=== PATIENT | female | born 1990 | race Caucasian/White ===

== ENCOUNTER 2017-05-24 14:35 | Emergency (ER) | payer OTHER, SELFPAY ==
--- NOTE | 2017-05-24 15:55 | ER ---
Nurse's Notes [facility] Name: Rachel Cunha Age: 27 yrs Sex: Female : 1990 Arrival Date: 05/24/2017 Time: 14:37 Bed 11 Private MD: Diagnosis: Acute pharyngitis Presentation: 05/24 14:47 Presenting complaint: Patient states: I am 6 weeks and I have had a sore la1 throat since this morning. Transition of care: patient was not received from another setting of care. Onset of symptoms was May 24, 2017. Care prior to arrival: None. 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 - Social history:: Smoking status: Patient uses tobacco products, smokes one-half pack cigarettes per day. Screenin:06 Abuse screen: Denies threats or abuse. Denies injuries from another. Nutritional iw screening: No deficits noted. Tuberculosis screening: No symptoms or risk factors identified. Fall Risk None identified. Assessment: 15:06 General: Appears in no apparent distress. Behavior is calm, cooperative. Pain: iw Complains of pain in throat. Respiratory: Airway is patent Respiratory effort is even, unlabored, Breath sounds are clear bilaterally. EENT: Throat is reddened has enlarged tonsils on right bilaterally. Vital Signs: 14:48 BP 115 / 80; Pulse 81; Resp 16; Temp 98.1; Pulse Ox 100% on R/A; Weight 72.57 kg; la1 Height 5 ft. 4 in. (162.56 cm); 14:48 Body Mass Index 27.46 (72.57 kg, 162.56 cm) la1 ED Course: 14:37 Patient arrived in ED. tw3 14:41 Susanne Tapia FNP-C is PHCP. kb 14:41 Harshal Sims MD is Attending Physician. kb 14:47 Triage completed. la1 14:48 Arm band placed on right wrist. la1 14:56 Misty Shahid RN is Primary Nurse. iw 15:06 No provider procedures requiring assistance completed. Strep swab sent to lab. iw 15:58 Patient did not have IV access during this emergency room visit. iw 15:59 Patient has correct armband on for positive identification. iw Administered Medications: No medications were administered Outcome: 15:55 Discharge ordered by . kb 15:58 Discharged to home ambulatory. iw 15:58 Condition: good 15:58 Discharge instructions given to patient, Instructed on discharge instructions, follow up and referral plans. Demonstrated understanding of instructions, follow-up care. 15:59 Patient left the ED. iw Signatures: Susanne Tapia, JAVA JSF DEVELOPER-C JAVA JSF DEVELOPER-Misty Marie, RN RN Osman Perrin RN RN la1 Angie Lozano tw3
--- NOTE | 2017-05-24 15:55 | EDPHYS ---
Physician Documentation [facility] Name: Rcahel Cunha Age: 27 yrs Sex: Female : 1990 Arrival Date: 05/24/2017 Time: 14:37 Bed 11 Private MD: ED Physician Harshal Sims HPI: 05/24 15:27 This 27 yrs old Female presents to ER via Ambulatory with complaints of Sore kb Throat. 15:27 The patient presents with sore throat. The patient describes throat pain as constant. kb Onset: The symptoms/episode began/occurred this morning. Severity of symptoms: At their worst the symptoms were moderate, in the emergency department the symptoms are unchanged. Modifying factors: The symptoms are alleviated by nothing, the symptoms are aggravated by swallowing, Patient's oral intake status: good. Associated signs and symptoms: Pertinent positives: Sore throat. The patient has not experienced similar symptoms in the past. The patient has not recently seen a physician. 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 - Social history:: Smoking status: Patient uses tobacco products, smokes one-half pack cigarettes per day. ROS: 15:27 Constitutional: Negative for fever, chills, and weight loss, Cardiovascular: Negative kb for chest pain, palpitations, and edema, Respiratory: Negative for shortness of breath, cough, wheezing, and pleuritic chest pain, Abdomen/GI: Negative for abdominal pain, nausea, vomiting, diarrhea, and constipation, MS/Extremity: Negative for injury and deformity, Skin: Negative for injury, rash, and discoloration, Neuro: Negative for headache, weakness, numbness, tingling, and seizure. 15:27 ENT: Positive for sore throat. Exam: 15:26 Constitutional: This is a well developed, well nourished patient who is awake, alert, kb and in no acute distress. Head/Face: Normocephalic, atraumatic. Chest/axilla: Normal chest wall appearance and motion. Nontender with no deformity. No lesions are appreciated. Cardiovascular: Regular rate and rhythm with a normal S1 and S2. No gallops, murmurs, or rubs. Normal PMI, no JVD. No pulse deficits. Respiratory: Lungs have equal breath sounds bilaterally, clear to auscultation and percussion. No rales, rhonchi or wheezes noted. No increased work of breathing, no retractions or nasal flaring. Abdomen/GI: Soft, non-tender, with normal bowel sounds. No distension or tympany. No guarding or rebound. No evidence of tenderness throughout. Skin: Warm, dry with normal turgor. Normal color with no rashes, no lesions, and no evidence of cellulitis. MS/ Extremity: Pulses equal, no cyanosis. Neurovascular intact. Full, normal range of motion. Neuro: Awake and alert, GCS 15, oriented to person, place, time, and situation. Cranial nerves II-XII grossly intact. Motor strength 5/5 in all extremities. Sensory grossly intact. Cerebellar exam normal. Normal gait. 15:26 ENT: Posterior pharynx: Airway: normal, no evidence of obstruction, Tonsils: are normal in appearance, Uvula: normal, midline, swelling, is not appreciated, erythema, that is moderate. Vital Signs: 14:48 BP 115 / 80; Pulse 81; Resp 16; Temp 98.1; Pulse Ox 100% on R/A; Weight 72.57 kg; la1 Height 5 ft. 4 in. (162.56 cm); 14:48 Body Mass Index 27.46 (72.57 kg, 162.56 cm) la1 MDM: 14:51 Patient medically screened. kb 15:26 Data reviewed: vital signs, nurses notes. Data interpreted: Pulse oximetry: on room air kb is 100 %. Interpretation: normal. 15:54 Counseling: I had a detailed discussion with the patient and/or guardian regarding: the kb historical points, exam findings, and any diagnostic results supporting the discharge/admit diagnosis, lab results, the need for outpatient follow up, a family practitioner, to return to the emergency department if symptoms worsen or persist or if there are any questions or concerns that arise at home. 05/24 14:51 Order name: Strep; Complete Time: 15:48 kb 05/24 15:19 Order name: Urine Dipstick--Ancillary (enter results) ag 05/24 14:56 Order name: Urine Dipstick-Ancillary (obtain specimen); Complete Time: 15:10 kb 05/24 15:30 Order name: Throat Culture EDMS Administered Medications: No medications were administered Disposition: 16:44 Co-signature as Attending Physician, Harshal Sims MD I agree with the assessment and kdr plan of care. Disposition: 05/24/17 15:55 Discharged to Home. Impression: Acute pharyngitis. - Condition is Stable. - Discharge Instructions: Viral Infections, [id number], Sore Throat, [id number]. - Medication Reconciliation Form, Thank You Letter, Antibiotic Education, Prescription Opioid Use form. - Follow up: Emergency Department; When: As needed; Reason: Worsening of condition. Follow up: Private Physician; When: 2 - 3 days; Reason: Recheck today's complaints, Continuance of care, Re-evaluation by your physician. Signatures: Dispatcher [employer] EDMS Susanne Tapia, TOOL CRIB CLERK-C TOOL CRIB CLERK-Harshal Godwin MD MD kdr Misty Shahid, DEBBY GUARDADO iw Osman Marvin RN RN la1
[2017-05-24 16:12] VITALS: BP 115/80; TEMP 98.1; O2SAT 100
[2017-05-24 18:17] LABS: Urine Blood NEGATIVE (NEG); Urine Glucose NEGATIVE (NEG); Urine Protein NEGATIVE (NEG); Urine Specific Gravity >1.030 (1.005-1.030)
== END 2017-05-24 15:59 | disposition home or self-care (01) ==
LOC: ER 14:35
DX: J02.9 Acute pharyngitis, unspecified (principal); F17.210 Nicotine dependence, cigarettes, uncomplicated
CPT/HCPCS: 81003; 87070; 87081; 99283

== ENCOUNTER 2020-08-19 00:44 | Emergency (ER) | payer OTHER ==
--- OUTSIDE RECORDS SUMMARY | 2020-08-19 00:47 | XMS REPORT | Continuity of Care Document ---
:1990 Author Organization [facility] t Address [address] [place] [address] Care Team Providers Name Role Phone Mckenna Attending Clinician Sina Delcid MD Attending Clinician Kate Jennings Attending Clinician Problems This patient has no known problems. Allergies, Adverse Reactions, Alerts This patient has no known allergies or adverse reactions. Medications This patient has no known medications. Procedures This patient has no known procedures. Encounters Start End Encounter Admission Attending Care Care Encounter Source Date/Time Date/Time Type Type Clinicians Facility Department ID 2020-08-05 2020-08-05 Emergency Singer [facility] [id number] 13:59:00 19:11:00 Mane Raygoza [id number] [place] [id number] [place] [address] [phone] [id number] 2020-08-04 2020-08-05 Emergency Bhavin [facility] [id number] 22:32:00 00:33:00 Stef Raygoza [id number] [place] [id number] [place] [address] [id number] 2020-06-02 2020-06-02 Office Prateek [facility] [id number] 08:34:34 09:19:28 Visit 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
[2020-08-19] MEDS ORDERED: ONDANSETRON 4 MG (ODT) TAB ONE (01:25)
--- NOTE | 2020-08-19 03:52 | EDPHYS ---
Physician Documentation [facility] Name: Rachel Cunha Age: 30 yrs Sex: Female : 1990 Arrival Date: 08/19/2020 Time: 00:45 Bed 18 Private MD: ED Physician Johnny Adhikari HPI: 08/19 03:38 This 30 yrs old Female presents to ER via Ambulatory with complaints of mh7 Breathing Difficulty, problem with rib cage. 03:38 Trauma demographics: County: The [place] occurred in [place] Location of Injury: The mh7 injury occurred at home, Date: August 18, 2020. Mechanism of injury: Playing around. Associated injuries: The patient sustained injury to the chest, specifically the left lower anterior lateral chest, pain with breathing, pain with movement. Onset: The symptoms/episode began/occurred last night, initially injured 5 days ago playing sports. 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 - Social history:: Smoking status: Patient reports the use of cigarette tobacco products, smokes one-half pack cigarettes per day. ROS: 03:38 Constitutional: Negative for fever, chills, and weight loss, Eyes: Negative for injury, mh7 pain, redness, and discharge, ENT: Negative for injury, pain, and discharge, Neck: Negative for injury, pain, and swelling, Abdomen/GI: Negative for abdominal pain, nausea, vomiting, diarrhea, and constipation, Back: Negative for injury and pain, : Negative for injury, bleeding, discharge, and swelling, MS/Extremity: Negative for injury and deformity, Skin: Negative for injury, rash, and discoloration, Neuro: Negative for headache, weakness, numbness, tingling, and seizure, Psych: Negative for depression, anxiety, suicide ideation, homicidal ideation, and hallucinations, Allergy/Immunology: Negative for hives, rash, and allergies, Endocrine: Negative for neck swelling, polydipsia, polyuria, polyphagia, and marked weight changes, Hematologic/Lymphatic: Negative for swollen nodes, abnormal bleeding, and unusual bruising. Exam: 03:38 Constitutional: This is a well developed, well nourished patient who is awake, alert, mh7 and in no acute distress. Head/Face: Normocephalic, atraumatic. Eyes: Pupils equal round and reactive to light, extra-ocular motions intact. Lids and lashes normal. Conjunctiva and sclera are non-icteric and not injected. Cornea within normal limits. Periorbital areas with no swelling, redness, or edema. 03:38 Cardiovascular: Regular rate and rhythm with a normal S1 and S2. No gallops, murmurs, or rubs. Normal PMI, no JVD. No pulse deficits. Respiratory: Lungs have equal breath sounds bilaterally, clear to auscultation and percussion. No rales, rhonchi or wheezes noted. No increased work of breathing, no retractions or nasal flaring. Abdomen/GI: Soft, non-tender, with normal bowel sounds. No distension or tympany. No guarding or rebound. No evidence of tenderness throughout. Back: No spinal tenderness. No costovertebral tenderness. Full range of motion. Skin: Warm, dry with normal turgor. Normal color with no rashes, no lesions, and no evidence of cellulitis. MS/ Extremity: Pulses equal, no cyanosis. Neurovascular intact. Full, normal range of motion. Neuro: Awake and alert, GCS 15, oriented to person, place, time, and situation. Cranial nerves II-XII grossly intact. Motor strength 5/5 in all extremities. Sensory grossly intact. Cerebellar exam normal. Normal gait. Psych: Awake, alert, with orientation to person, place and time. Behavior, mood, and affect are within normal limits. 03:38 Chest/axilla: Inspection: normal, Palpation: tenderness, that is moderate, of the left lower anterior lateral chest, that totally reproduces the patient's complaints, Axilla: are normal, Lymph nodes: lymphadenopathy is not appreciated. Vital Signs: 00:59 BP 146 / 108; Pulse 97; Resp 16; Temp 98.1; Pulse Ox 98% on R/A; Weight 68.04 kg; em Height 5 ft. 4 in. (162.56 cm); Pain 8/10; 00:59 Body Mass Index 25.75 (68.04 kg, 162.56 cm) em MDM: 03:49 Differential diagnosis: rib fracture versus contusion, chest wall pain, pneumothorax. [facility] Data reviewed: vital signs, nurses notes, radiologic studies, plain films. Data interpreted: Pulse oximetry: on room air is 98 %. Interpretation: normal. Counseling: I had a detailed discussion with the patient and/or guardian regarding: the historical points, exam findings, and any diagnostic results supporting the discharge/admit diagnosis, the presence of at least one elevated blood pressure reading (>120/80) during this emergency department visit, radiology results, the need for outpatient follow up, to return to the emergency department if symptoms worsen or persist or if there are any questions or concerns that arise at home. 03:52 Patient medically screened. [facility] 08/19 01:06 Order name: Chest Single View XRAY em Administered Medications: 01:06 Drug: Ondansetron 4 mg Route: PO; em 03:22 Follow up: Response: No adverse reaction ea 03:58 Not Given (Patient Eloped): Tylenol 1000 mg PO once rr5 Disposition Summary: 08/19/20 03:52 Discharge Ordered Location: Home [facility] Problem: an ongoing problem [facility] Symptoms: have improved [facility] Condition: Stable [facility] Diagnosis - Chest Wall Pain [facility] Followup: [facility] - With: Private Physician - When: 1 - 2 days - Reason: Worsening of condition, Recheck today's complaints, Continuance of care, Re-evaluation by your physician Discharge Instructions: - Discharge Summary Sheet [facility] - Chest Wall Pain, [id number] [facility] Forms: - Medication Reconciliation Form [facility] - Thank You Letter [facility] - Antibiotic Education [facility] - Prescription Opioid Use [facility] Signatures: Dispatcher [employer] Jose Calloway, RN RN em Johnny Adhikari MD MD [facility] Tanya Tavarez RN, ea, Raymond RN rr5
--- NOTE | 2020-08-19 03:52 | ER ---
Nurse's Notes [facility] Name: Rachel Cunha Age: 30 yrs Sex: Female : 1990 Arrival Date: 08/19/2020 Time: 00:45 Bed 18 Private MD: Diagnosis: Chest Wall Pain Presentation: 08/19 00:59 Chief complaint: Patient states: was playing sports 5 days ago and got hit in the left em side of ribs, today was horse playing and heard a pop, also reports nausea, pain with inspiration. Coronavirus screen: Client denies travel out of the [place] in the last 14 days. Ebola Screen: Patient negative for fever greater than or equal to 101.5 degrees Fahrenheit, and additional compatible Ebola Virus Disease symptoms Patient denies exposure to infectious person. Patient denies travel to an Ebola-affected area in the 21 days before illness onset. No symptoms or risks identified at this time. Initial Sepsis Screen: Does the patient meet any 2 criteria? HR > 90 bpm. No. Patient's initial sepsis screen is negative. Does the patient have a suspected source of infection? No. Patient's initial sepsis screen is negative. Risk Assessment: Do you want to hurt yourself or someone else? Patient reports no desire to harm self or others. Onset of symptoms was August 19, 2020. 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 - Social history:: Smoking status: Patient reports the use of cigarette tobacco products, smokes one-half pack cigarettes per day. Screenin:56 Abuse screen: Denies threats or abuse. Nutritional screening: No deficits noted. ea Tuberculosis screening: No symptoms or risk factors identified. Fall Risk None identified. Assessment: 01:55 General: Appears uncomfortable, Behavior is appropriate for age. Neuro: Level of ea Consciousness is awake, alert, obeys commands, Oriented to person, place, time. Cardiovascular: Patient's skin is warm and dry. Respiratory: Airway is patent Respiratory effort is even, unlabored, Respiratory pattern is regular, symmetrical. Derm: Skin is pink, warm \T\ dry. Vital Signs: 00:59 BP 146 / 108; Pulse 97; Resp 16; Temp 98.1; Pulse Ox 98% on R/A; Weight 68.04 kg; em Height 5 ft. 4 in. (162.56 cm); Pain 8/10; 00:59 Body Mass Index 25.75 (68.04 kg, 162.56 cm) em ED Course: 00:45 Patient arrived in ED. es 01:02 Triage completed. em 01:02 Arm band placed on. em 01:47 Johnny Adhikari MD is Attending Physician. [facility] 01:55 Tanya Tavarez, RN is Primary Nurse. ea 01:56 Patient has correct armband on for positive identification. Bed in low position. Call ea light in reach. 02:11 Chest Single View XRAY In Process Unspecified. EDMS 03:18 No provider procedures requiring assistance completed. ea Administered Medications: 01:06 Drug: Ondansetron 4 mg Route: PO; em 03:22 Follow up: Response: No adverse reaction ea 03:58 Not Given (Patient Eloped): Tylenol 1000 mg PO once rr5 Outcome: 03:52 Discharge ordered by . [facility] 03:58 Eloped from patient exam room, prior to discharge instruction given rr5 03:59 Patient left the ED. rr5 Signatures: Dispatcher [employer] EDMaribell Waters Edgar, RN RN Tanya Tavarez RN RN ea Roque, Raymond, RN RN rr5 Johnny Adhikari MD MD [facility]
[2020-08-19 04:05] VITALS: BP 146/108; TEMP 98.1; O2SAT 98
[2020-08-19] MEDS ORDERED: ACETAMINOPHEN 500 MG TAB ONE (04:13)
--- NOTE | 2020-08-21 10:49 | RAD REPORT ---
EXAM DESCRIPTION: RAD - Chest Single View - 08/19/2020 2:11 am CLINICAL HISTORY: 30 years, Female, CHEST PAIN COMPARISON: None. FINDINGS: Single view of the chest was obtained portable. No prior films are available for compariso n. The cardiomediastinal silhouette demonstrate to be unremarkable. The heart is not enlarged. The thoracic aorta is unremarkable. There is no evidence for pneumothorax. Costophrenic angles are sharp. No areas of consolidation or masses are seen. The rest of the soft tissue and bony structures de monstrate to be unremarkable. IMPRESSION: NO ACUTE CARDIOPULMONARY DISEASE SEEN. Electronically signed by: Brady Reyes MD 08/19/2020 3:32 AM CDT Due to temporary technical issues with the PACS/Fluency reporting system, reports are being signed by the in house radiologist without review as a courtesy to ensure prompt reporting. The interpreting r adiologist is fully responsible for the content of the report.
== END 2020-08-19 03:59 | disposition home or self-care (01) ==
LOC: ER 00:44
DX: R07.89 Other chest pain (principal); F17.210 Nicotine dependence, cigarettes, uncomplicated
CPT/HCPCS: 71045; 99283

== ENCOUNTER 2020-09-02 10:38 | Emergency (ER) | payer OTHER ==
--- OUTSIDE RECORDS SUMMARY | 2020-09-02 10:40 | XMS REPORT | Continuity of Care Document ---
:1990 Author Organization [facility] t Address [address] [place] [address] Care Team Providers Name Role Phone Mckenna [...] Facility Department ID 2020-08-05 2020-08-05 Emergency Singer [facility] [id number] 13:59:00 19:11:00 Mane Raygoza [id number] [place] [id number] [place] [address] [id number] [id number] 2020-08-04 2020-08-05 Emergency Bhavin [facility] [id number] 22:32:00 00:33:00 Stef Raygoza [id number] [place] [id number] [place] [address] [id number] [id number] 2020-06-02 2020-06-02 Office Prateek [facility] [id number] 08:34:34 09:19:28 Visit Michelle Love GROCERY SUPERVISOR [id number] [facility] [id number] MATERNAL [phone] & CHILD [address] [place] [address] Results This patient has no known results.
[2020-09-02] MEDS ORDERED: dexAMETHasone 10 MG/ML VIAL ONE (13:46)
[2020-09-02] MEDS ORDERED: PEN G BENZ LA 1.2MU/2ML SYRINGE IM ONE (13:46)
--- NOTE | 2020-09-02 14:19 | ER ---
Nurse's Notes [facility] Name: Rachel Cunha Age: 30 yrs Sex: Female : 1990 Arrival Date: 09/02/2020 Time: 11:00 Bed 13 Private MD: Diagnosis: Acute pharyngitis, unspecified Presentation: 09/02 12:23 Chief complaint: Patient states: sore throat X 2 days, hx of strep. Coronavirus screen: iw At this time, the client does not indicate any symptoms associated with coronavirus-19. Ebola Screen: Patient negative for fever greater than or equal to 101.5 degrees Fahrenheit, and additional compatible Ebola Virus Disease symptoms Patient denies exposure to infectious person. Patient denies travel to an Ebola-affected area in the 21 days before illness onset. No symptoms or risks identified at this time. 12:23 Method Of Arrival: Ambulatory iw 12:28 Initial Sepsis Screen: Does the patient meet any 2 criteria? No. Patient's initial iw sepsis screen is negative. Does the patient have a suspected source of infection? No. Patient's initial sepsis screen is negative. Risk Assessment: Do you want to hurt yourself or someone else? Patient reports no desire to harm self or others. Onset of symptoms was August 31, 2020. 12:28 Acuity: RODDY 4 iw Triage Assessment: 13:00 General: Appears in no apparent distress. Behavior is calm, cooperative. iw Historical: - Allergies: 12:55 No Known Allergies; iw - PMHx: 12:55 Anxiety; Chronic pain; iw Screenin:20 Abuse screen: Denies threats or abuse. Denies injuries from another. Nutritional iw screening: No deficits noted. Tuberculosis screening: No symptoms or risk factors identified. Fall Risk None identified. Assessment: 13:00 General: Appears in no apparent distress. Behavior is calm, cooperative. Pain: iw Complains of pain in throat. Neuro: Level of Consciousness is awake, alert, obeys commands, Oriented to person, place, time, situation, Appropriate for age Moves all extremities. Full function. Respiratory: Airway is patent Respiratory effort is even, unlabored, Breath sounds are clear bilaterally. EENT: Throat is reddened has patchy exudate has enlarged tonsils bilaterally with gag reflex present. Vital Signs: 13:49 BP 125 / 74; Pulse 89; Resp 16; Temp 98.9; Pulse Ox 98% on R/A; iw ED Course: 11:00 Patient arrived in ED. cl3 11:10 Dontrell Mijares PA is PHCP. wendi 11:10 Elvin Jaimes MD is Attending Physician. [facility] 12:05 Misty Shahid, RN is Primary Nurse. iw 12:28 Triage completed. iw 12:55 Arm band placed on. iw 13:00 Patient has correct armband on for positive identification. iw 14:21 No provider procedures requiring assistance completed. Patient did not have IV access iw during this emergency room visit. Administered Medications: 13:48 Drug: Decadron (dexamethasone) 10 mg Route: IM; Site: right ventrogluteal; iw 14:00 Follow up: Response: No adverse reaction iw 13:49 Drug: Bicillin L-A (penicillin G Benzathine) 1.2 million units Route: IM; Site: right iw ventrogluteal; 14:00 Follow up: Response: No adverse reaction iw Outcome: 14:19 Discharge ordered by MD. [facility] 14:21 Discharged to home ambulatory, with friend. iw 14:21 Condition: good 14:21 Discharge instructions given to patient, Instructed on discharge instructions, follow up and referral plans. Demonstrated understanding of instructions, follow-up care. 14:22 Patient left the ED. iw Signatures: Dontrell Mijares PA PA jmm Williams, Irene, RN RN iw Richard Swati cl3
--- NOTE | 2020-09-02 14:19 | EDPHYS ---
Physician Documentation [facility] Name: Rachel Cunha Age: 30 yrs Sex: Female : 1990 Arrival Date: 09/02/2020 Time: 11:00 Bed 13 Private MD: ED Physician Elvin Jaimes HPI: 09/02 14:06 This 30 yrs old Female presents to ER via Ambulatory with complaints of Sore jmm Throat. 14:06 The patient presents with sore throat. Onset: The symptoms/episode began/occurred jmm gradually, 1 day(s) ago. Modifying factors: The symptoms are alleviated by nothing, the symptoms are aggravated by nothing. Associated signs and symptoms: Pertinent positives: chills, Pertinent negatives. Is a 30-year-old. Historical: - Allergies: 12:55 No Known Allergies; iw - PMHx: 12:55 Anxiety; Chronic pain; iw ROS: 14:17 Constitutional: Negative for fever, chills, and weight loss. [facility] 14:17 ENT: Positive for sore throat. 14:17 All other systems are negative. Exam: 14:17 Constitutional: This is a well developed, well nourished patient who is awake, alert, jmm and in no acute distress. Head/Face: atraumatic. Eyes: EOMI, no conjunctival erythema appreciated 14:17 Neck: Trachea midline, Supple Chest/axilla: Normal chest wall appearance and motion. Cardiovascular: Regular rate and rhythm. No edema appreciated Respiratory: Normal respirations, no respiratory distress appreciated Abdomen/GI: Non distended, soft Back: Normal ROM Skin: General appearance color normal MS/ Extremity: Moves all extremities, no obvious deformities appreciated, no edema noted to the lower extremities Neuro: Awake and alert, normal gait Psych: Behavior is normal, Mood is normal, Patient is cooperative and pleasant 14:17 ENT: Posterior pharynx: erythema, that is moderate, exudate, that is moderate, no group captain abscess appreciated. Vital Signs: 13:49 BP 125 / 74; Pulse 89; Resp 16; Temp 98.9; Pulse Ox 98% on R/A; iw MDM: 12:13 Patient medically screened. [facility] 14:18 Data reviewed: vital signs, nurses notes. Counseling: I had a detailed discussion with hipolito the patient and/or guardian regarding: the historical points, exam findings, and any diagnostic results supporting the discharge/admit diagnosis, lab results, the need for outpatient follow up, to return to the emergency department if symptoms worsen or persist or if there are any questions or concerns that arise at home. ED course: Patient is alert nontoxic in appearance in the ED. I do not suspect Benson's angina. I do not suspect peritonsillar abscess. Patient was advised to follow-up with PCP and otherwise given strict return precautions.. 09/02 12:13 Order name: Strep; Complete Time: 13:12 [facility] 09/02 13:11 Order name: Throat Culture EDMS Administered Medications: 13:48 Drug: Decadron (dexamethasone) 10 mg Route: IM; Site: right ventrogluteal; iw 14:00 Follow up: Response: No adverse reaction iw 13:49 Drug: Bicillin L-A (penicillin G Benzathine) 1.2 million units Route: IM; Site: right iw ventrogluteal; 14:00 Follow up: Response: No adverse reaction iw Disposition: 09/03 07:02 Co-signature as Attending Physician, Elvin Jaimes MD I agree with the assessment and aidan plan of care. Disposition Summary: 09/02/20 14:19 Discharge Ordered Location: Home jm Condition: Stable [facility] Diagnosis - Acute pharyngitis, unspecified [facility] Followup: jm - With: Private Physician - When: 2 - 3 days - Reason: Recheck today's complaints, Continuance of care, Re-evaluation by your physician Discharge Instructions: - Discharge Summary Sheet jmm - Pharyngitis jmm - Sore Throat jm Forms: - Medication Reconciliation Form [facility] - Thank You Letter jmm - Antibiotic Education jmm - Prescription Opioid Use [facility] Signatures: Dispatcher [employer] Elvin Mason MD MD cha Mickail, Joel, PA PA jmm Williams, Irene, RN RN iw
[2020-09-02 14:27] VITALS: BP 125/74; TEMP 98.9; O2SAT 98
== END 2020-09-02 14:22 | disposition home or self-care (01) ==
LOC: ER 10:38
DX: J02.9 Acute pharyngitis, unspecified (principal)
CPT/HCPCS: 87070; 87081; 96372; 99283; J0561; J1100